=== PATIENT | male | born 1985 | race Hispanic/Latino ===

== ENCOUNTER 2019-06-17 09:29 | Emergency (ER) | payer BC ==
[2019-06-17] MEDS ORDERED: ALBUTEROL 2.5 MG/3 ML NEB SOL ONE (10:18)
[2019-06-17] MEDS ORDERED: IPRATROPIUM BROM 0.5MG/2.5ML ONE (10:18)
--- NOTE | 2019-06-17 11:48 | RAD REPORT ---
EXAM DESCRIPTION: RAD - Chest Pa And Lat (2 Views) - 06/17/2019 11:10 am CLINICAL HISTORY: Cough;Congestion, fever COMPARISON: None. TECHNIQUE: PA and lateral views of the chest were obtained. FINDINGS: The lungs are clear of focal infiltrate. Perihilar markings are not outside of range of no rmal. Heart size is normal and central vasculature is within normal limits. No pleural effusion or pneumothorax seen. No acute bony finding noted. No aortic abnormality. IMPRESSION: No acute cardiopulmonary process.
--- NOTE | 2019-06-17 11:56 | ER ---
Nurse's Notes [facility] Name: Arti Brunner Age: 34 yrs Sex: Male : 1985 Arrival Date: 06/17/2019 Time: 09:32 Bed 15 Private MD: Diagnosis: Bronchitis, not specified as acute or chronic Presentation: 06/17 09:46 Presenting complaint: Patient states: chest congestion and tightness X 2 days, fever at home on Jun 04, was seen at doctor and prescribed abx for bronchitis, f/u with doctor at clinic yesterday, doctor heard something on left side of chest was told he needed CXR, dry cough. Transition of care: patient was not received from another setting of care. Onset of symptoms was June 04, 2019. Risk Assessment: Do you want to hurt yourself or someone else? Patient reports no desire to harm self or others. Initial Sepsis Screen: Does the patient meet any 2 criteria? No. Patient's initial sepsis screen is negative. Does the patient have a suspected source of infection? No. Patient's initial sepsis screen is negative. Care prior to arrival: None. 09:46 Method Of Arrival: Ambulatory 09:46 Acuity: KARINE 3 iw Historical: - Allergies: 09:50 No Known Allergies; iw - Home Meds: 09:50 None [Active]; iw - PMHx: 09:50 None; iw - PSHx: 09:50 None; iw - Immunization history:: Adult Immunizations not up to date. - Social history:: Smoking status: Patient/guardian denies using tobacco. - Ebola Screening: : Patient negative for fever greater than or equal to 101.5 degrees Fahrenheit, and additional compatible Ebola Virus Disease symptoms Patient denies exposure to infectious person Patient denies travel to an Ebola-affected area in the 21 days before illness onset No symptoms or risks identified at this time. Screenin:00 Abuse screen: Denies threats or abuse. Denies injuries from another. Nutritional ph screening: No deficits noted. Tuberculosis screening: No symptoms or risk factors identified. Fall Risk None identified. Assessment: 10:00 General: Appears in no apparent distress. comfortable, well groomed, Behavior is calm, ph cooperative, appropriate for age, Denies fever. Pain: Denies pain. Neuro: Level of Consciousness is awake, alert, obeys commands, Oriented to person, place, time, situation. Cardiovascular: Capillary refill < 3 seconds in bilateral fingers Patient's skin is warm and dry. Rhythm is regular. Respiratory: Reports cough that is Airway is patent Respiratory effort is even, unlabored, Respiratory pattern is regular, symmetrical, Breath sounds are coarse in left posterior lower lobe. GI: No signs and/or symptoms were reported involving the gastrointestinal system. Derm: Skin is intact, is healthy with good turgor, Skin is pink, warm \T\ dry. Musculoskeletal: Circulation, motion, and sensation intact. Range of motion: intact in all extremities. 12:08 Reassessment: Patient appears in no apparent distress at this time. Patient and/or ph family updated on plan of care and expected duration. Pain level reassessed. Patient is alert, oriented x 3, equal unlabored respirations, skin warm/dry/pink. Pt d/c home. Vital Signs: 09:50 BP 143 / 102; Pulse 100; Resp 18; Temp 98.2(O); Pulse Ox 98% on R/A; Weight 72.57 kg; iw Height 5 ft. 7 in. (170.18 cm); 11:30 BP 137 / 89; Pulse 87; Resp 18; Temp 97.9; Pulse Ox 99% on R/A; ph 09:50 Body Mass Index 25.06 (72.57 kg, 170.18 cm) iw ED Course: 09:32 Patient arrived in ED. mr 09:41 Sabrina Luo, [facility]STINA is [facility]. kb 09:41 Dejuan Upton MD is Attending Physician. kb 09:50 Triage completed. iw 09:50 Arm band placed on. iw 09:55 Shasta Olvera, RN is Primary Nurse. ph 10:30 Patient has correct armband on for positive identification. Placed in gown. Bed in low ph position. Call light in reach. Side rails up X 1. Pulse ox on. NIBP on. Door closed. Noise minimized. Warm blanket given. 11:10 Chest Pa And Lat (2 Views) XRAY In Process Unspecified. EDMS 12:11 No provider procedures requiring assistance completed. Patient did not have IV access ph during this emergency room visit. Administered Medications: 10:23 Drug: DuoNeb (3:1) (2.5 mg - 0.5 mg) 3 ml Route: Nebulizer; ph 10:47 Follow up: Response: No adverse reaction ph Outcome: 11:54 Discharge ordered by . tramaine 12:11 Discharged to home ambulatory, with significant other. ph 12:11 Condition: good 12:11 Discharge instructions given to patient, Instructed on discharge instructions, follow up and referral plans. Demonstrated understanding of instructions, follow-up care. 12:12 Patient left the ED. ph Signatures: Dispatcher [employer] EDSabrina Perry, CHRISTINA ABAD-Elise Veras Irene, RN RN iw Shasta Olvera RN RN ph
--- NOTE | 2019-06-17 11:57 | EDPHYS ---
Physician Documentation [facility] Name: Arti Brunner Age: 34 yrs Sex: Male : 1985 Arrival Date: 06/17/2019 Time: 09:32 Bed 15 Private MD: ED Physician Dejuan Upton HPI: 06/17 11:33 This 34 yrs old Male presents to ER via Ambulatory with complaints of cough. kb 11:33 The patient or guardian reports cough, that is intermittent, described as mild, with no kb sputum, flu symptoms, low-grade fever, myalgias. Onset: The symptoms/episode began/occurred 2 week(s) ago. Severity of symptoms: At their worst the symptoms were moderate, in the emergency department the symptoms have improved, moderately. Modifying factors: The symptoms are alleviated by nothing, the symptoms are aggravated by nothing. Associated signs and symptoms: The patient has no apparent associated signs or symptoms. The patient has not experienced similar symptoms in the past. The patient has not recently seen a physician. Pt reports he started with cough, congestion and fever on 06/03/19. Went to the clinic on the third day of symptoms and was given 10 day course of augmentin. States he finished that yesterday and went back to the clinic for follow up. The dr that he saw yesterday told him he needed to come for a chest x-ray because she heard some bacteria in his left lung. Historical: - Allergies: 09:50 No Known Allergies; iw - Home Meds: 09:50 None [Active]; iw - PMHx: 09:50 None; iw - PSHx: 09:50 None; iw - Immunization history:: Adult Immunizations not up to date. - Social history:: Smoking status: Patient/guardian denies using tobacco. - Ebola Screening: : Patient negative for fever greater than or equal to 101.5 degrees Fahrenheit, and additional compatible Ebola Virus Disease symptoms Patient denies exposure to infectious person Patient denies travel to an Ebola-affected area in the 21 days before illness onset No symptoms or risks identified at this time. ROS: 11:32 Constitutional: Negative for fever, chills, and weight loss, ENT: Negative for injury, kb pain, and discharge, Neck: Negative for injury, pain, and swelling, Cardiovascular: Negative for chest pain, palpitations, and edema, Abdomen/GI: Negative for abdominal pain, nausea, vomiting, diarrhea, and constipation, Back: Negative for injury and pain, : Negative for injury, bleeding, discharge, and swelling, MS/Extremity: Negative for injury and deformity, Skin: Negative for injury, rash, and discoloration, Neuro: Negative for headache, weakness, numbness, tingling, and seizure. 11:32 Respiratory: Positive for cough, Negative for dyspnea on exertion, hemoptysis, orthopnea, pleurisy, shortness of breath, sputum production, wheezing. Exam: 11:32 Constitutional: This is a well developed, well nourished patient who is awake, alert, kb and in no acute distress. Head/Face: Normocephalic, atraumatic. ENT: Nares patent. No nasal discharge, no septal abnormalities noted. Tympanic membranes are normal and external auditory canals are clear. Oropharynx with no redness, swelling, or masses, exudates, or evidence of obstruction, uvula midline. Mucous membranes moist. Neck: Trachea midline, no thyromegaly or masses palpated, and no cervical lymphadenopathy. Supple, full range of motion without nuchal rigidity, or vertebral point tenderness. No Meningismus. Chest/axilla: Normal chest wall appearance and motion. Nontender with no deformity. No lesions are appreciated. Cardiovascular: Regular rate and rhythm with a normal S1 and S2. No gallops, murmurs, or rubs. Normal PMI, no JVD. No pulse deficits. Abdomen/GI: Soft, non-tender, with normal bowel sounds. No distension or tympany. No guarding or rebound. No evidence of tenderness throughout. Back: No spinal tenderness. No costovertebral tenderness. Full range of motion. Skin: Warm, dry with normal turgor. Normal color with no rashes, no lesions, and no evidence of cellulitis. MS/ Extremity: Pulses equal, no cyanosis. Neurovascular intact. Full, normal range of motion. Neuro: Awake and alert, GCS 15, oriented to person, place, time, and situation. Cranial nerves II-XII grossly intact. Motor strength 5/5 in all extremities. Sensory grossly intact. Cerebellar exam normal. Normal gait. 11:32 Respiratory: the patient does not display signs of respiratory distress, Respirations: normal, Breath sounds: rhonchi, that are mild, are heard in the left lower lobe and left posterior lower lobe. Vital Signs: 09:50 BP 143 / 102; Pulse 100; Resp 18; Temp 98.2(O); Pulse Ox 98% on R/A; Weight 72.57 kg; iw Height 5 ft. 7 in. (170.18 cm); 11:30 BP 137 / 89; Pulse 87; Resp 18; Temp 97.9; Pulse Ox 99% on R/A; ph 09:50 Body Mass Index 25.06 (72.57 kg, 170.18 cm) iw MDM: 09:50 Patient medically screened. kb 11:32 Data reviewed: vital signs, nurses notes. Data interpreted: Pulse oximetry: on room air kb is 98 %. Interpretation: normal. Test interpretation: by ED physician or midlevel provider: plain radiologic studies, neg . 11:54 Counseling: I had a detailed discussion with the patient and/or guardian regarding: the kb historical points, exam findings, and any diagnostic results supporting the discharge/admit diagnosis, radiology results, the need for outpatient follow up, a family practitioner, to return to the emergency department if symptoms worsen or persist or if there are any questions or concerns that arise at home. 06/17 10:09 Order name: Chest Pa And Lat (2 Views) XRAY; Complete Time: 11:55 kb Administered Medications: 10:23 Drug: DuoNeb (3:1) (2.5 mg - 0.5 mg) 3 ml Route: Nebulizer; ph 10:47 Follow up: Response: No adverse reaction ph Disposition: 06/17/19 11:54 Discharged to Home. Impression: Bronchitis, not specified as acute or chronic. - Condition is Stable. - Discharge Instructions: Acute Bronchitis, [id number], Viral Respiratory Infection, [id number]. - Prescriptions for Albuterol Sulfate 90 mcg/actuation - inhale 1-2 puff by INHALATION route every 4-6 hours; 1 Inhaler. - Medication Reconciliation Form, Thank You Letter, Antibiotic Education, Prescription Opioid Use, Work release form form. - Follow up: Private Physician; When: 2 - 3 days; Reason: Recheck today's complaints, Continuance of care, Re-evaluation by your physician. Follow up: Emergency Department; When: As needed. Addendum: 06/18/2019 15:28 Co-signature as Attending Physician, Dejuan Upton MD. g s Signatures: Dispatcher [employer] EDSabrina Perry, CLIENT RELATIONSHIP MANAGER-C CLIENT RELATIONSHIP MANAGER-Ckb Destinee Trejo, RN RN iw Shasta Olvera RN RN erik Upton, MD PAM Zaidi Corrections: (The following items were deleted from the chart) 06/17 12:12 11:54 06/17/2019 11:54 Discharged to Home. Impression: Bronchitis, not specified as ph acute or chronic. Condition is Stable. Forms are Medication Reconciliation Form, Thank You Letter, Antibiotic Education, Prescription Opioid Use. Follow up: Private Physician; When: 2 - 3 days; Reason: Recheck today's complaints, Continuance of care, Re-evaluation by your physician. Follow up: Emergency Department; When: As needed. kb
[2019-06-17 12:25] VITALS: BP 143/102; TEMP 98.2; O2SAT 98
== END 2019-06-17 12:12 | disposition home or self-care (01) ==
LOC: ER 09:29
DX: J40 Bronchitis, not specified as acute or chronic (principal)
CPT/HCPCS: 71046; 94640; 99284

== ENCOUNTER 2020-01-24 10:34 | Emergency (ER) | payer BC, SELFPAY ==
[2020-01-24 11:34] LABS: Absolute Lymphocytes (CBC) 1.9 K/uL (0.7-4.9); Basophils % 0.5 % (0-1.3); Hematocrit 51.4 % (39.6-49.0); Lymphocytes % 27.6 % (15.3-44.8); RBC Red Blood Cell Count 5.69 M/uL (4.33-5.43)
[2020-01-24 11:40] LABS: Protime INR 1.03
--- NOTE | 2020-01-24 11:43 | RAD REPORT ---
EXAM DESCRIPTION: Jsutus Single View01/24/2020 11:21 am CLINICAL HISTORY: Chest pain COMPARISON: 2018 FINDINGS: The lungs appear clear of acute infiltrate. The heart is normal size IMPRESSION: No acute abnormalities displayed
[2020-01-24 11:52] LABS: ALT/SGPT 44 U/L (12-78); AST/SGOT 18 U/L (15-37); Albumin 3.9 g/dL (3.4-5.0); Alkaline Phosphatase 77 U/L (45-117); BUN Blood Urea Nitrogen 12 mg/dL (7-18); Bicarbonate 31 mmol/L (21-32); Bilirubin Direct 0.2 mg/dL (0-0.2); Bilirubin Total 0.6 mg/dL (0.2-1.0); Glucose Level 108 mg/dL (74-106); Magnesium 2.2 mg/dL (1.8-2.4); NT PRO-BNP 5 pg/mL (<125); Protein, Total 7.4 g/dL (6.4-8.2); Sodium Level 140 mmol/L (136-145); Troponin (Emerg Dept Use Only) < 0.02 ng/mL (0.0-0.045)
[2020-01-24 13:43] VITALS: TEMP 99.1
[2020-01-24 13:45] VITALS: BP 131/88; O2SAT 98
--- NOTE | 2020-01-25 07:09 | EKG ---
Test Date: 2020-01-24 Test Time: 11:08:01 Retail Wireless Sales Representative: DAVION MEASUREMENT RESULTS: Intervals: Rate: 69 MD: 138 QRSD: 86 QT: 362 QTc: 387 Alva: P: 51 MD: 138 QRS: 50 T: 23 INTERPRETIVE STATEMENTS: Normal sinus rhythm with sinus arrhythmia Nonspecific T wave abnormality Abnormal ECG No previous ECG available for comparison Electronically Signed On 01-25-20 07:08:07 CDT by Nicolas Palacios
--- NOTE | 2020-01-31 12:10 | ER ---
Nurse's Notes [facility] Name: Arti Brunner Age: 34 yrs Sex: Male : 1985 Arrival Date: 01/24/2020 Time: 10:36 Bed 16 Private MD: Diagnosis: Chest pain, unspecified Presentation: 01/23 10:50 Chief complaint: Patient states: left-sided chest pain, left arm tingling and pain aa5 radiating to upper back. Pt reports mild SOB. Denies cough, denies fever. Pt reports symptoms began 3-4 days ago. 10:50 Coronavirus screen: Patient denies a cough. Patient reports shortness of breath or aa5 difficulty breathing. Patient denies measured and/or subjective temperature greater than 100.4F prior to today's visit. Patient denies travel on a cruise ship or to a country the [facility] currently lists as an affected area. Patient denies contact with known and/or suspected case of COVID-19. Ebola Screen: Patient negative for fever greater than or equal to 101.5 degrees Fahrenheit, and additional compatible Ebola Virus Disease symptoms. Initial Sepsis Screen: Does the patient meet any 2 criteria? No. Patient's initial sepsis screen is negative. Does the patient have a suspected source of infection? No. Patient's initial sepsis screen is negative. Risk Assessment: Do you want to hurt yourself or someone else? Patient reports no desire to harm self or others. Onset of symptoms was December 2019. 10:50 Acuity: KARINE 3 aa5 10:50 Method Of Arrival: Ambulatory aa5 Triage Assessment: 10:50 General: Appears in no apparent distress. comfortable, Behavior is cooperative, bp appropriate for age, anxious. Pain: Complains of pain in chest. EENT: No deficits noted. Neuro: No deficits noted. Cardiovascular: No deficits noted. Respiratory: No deficits noted. GI: No signs and/or symptoms were reported involving the gastrointestinal system. : No signs and/or symptoms were reported regarding the genitourinary system. Derm: No deficits noted. Musculoskeletal: No deficits noted. Historical: - Allergies: 10:50 No Known Allergies; aa5 - PMHx: 10:50 None; aa5 - PSHx: 10:50 lasik eye sx; aa5 - Immunization history:: Adult Immunizations unknown. - Social history:: Smoking status: unknown. Screenin:54 Abuse screen: Denies threats or abuse. Denies injuries from another. Nutritional bp screening: No deficits noted. Tuberculosis screening: No symptoms or risk factors identified. Fall Risk None identified. Assessment: 10:50 General: SEE TRIAGE NOTE. bp 11:50 Reassessment: ALL CURRENT ORDERS COMPLETED, EKG UNREMARKABLE. bp 13:08 Reassessment: PT D/C HOME AMBULATORY, DX WITH NONSPECIFIC CHEST PAIN. bp Vital Signs: 10:50 BP 137 / 87; Pulse 73; Resp 16 S; Temp 99.1(O); Pulse Ox 100% on R/A; Pain 0/10; aa5 12:06 BP 125 / 85; Pulse 75; Resp 18; Pulse Ox 99% ; bp 13:07 BP 131 / 88; Pulse 72; Resp 15; Pulse Ox 98% ; bp ED Course: 10:36 Patient arrived in ED. ag5 10:50 Crow Campbell NP is PHCP. pm1 10:50 Kye Elliott MD is Attending Physician. pm1 10:50 Arm band placed on Patient placed in an exam room, on a stretcher. aa5 10:59 Triage completed. aa5 11:00 cardiac monitor technician on. Pulse ox on. NIBP on. bp 11:00 Patient maintains SpO2 saturation greater than 95% on room air. bp 11:03 Car Monet, MIHAELA is Primary Nurse. bp 11:20 Inserted saline lock: 20 gauge in left forearm, using aseptic technique. Blood bp collected. 11:24 XRAY Chest (1 view) In Process Unspecified. EDMS 11:54 Patient has correct armband on for positive identification. Bed in low position. Call bp light in reach. Side rails up X2. 13:09 No provider procedures requiring assistance completed. IV discontinued, intact, bp bleeding controlled, No redness/swelling at site. Pressure dressing applied. Administered Medications: No medications were administered Outcome: 12:32 Discharge ordered by . pm1 13:09 Discharged to home bp 13:09 Condition: stable 13:09 Discharge instructions given to patient, Instructed on discharge instructions, follow up and referral plans. Demonstrated understanding of instructions, follow-up care. 13:11 Patient left the ED. bp Signatures: Dispatcher [employer] EDJayde Teresa RN RN aa5 Crow Campbell NP BIOLOGICAL TECHNICAL OFFICER pm1 Car Monet, MIHAELA RN bp Nancy, Ericka ag5
--- NOTE | 2020-01-31 12:10 | EDPHYS ---
Physician Documentation [facility] Name: Arti Brunner Age: 34 yrs Sex: Male : 1985 Arrival Date: 01/24/2020 Time: 10:36 Bed 16 Private MD: ED Physician Kye Elliott HPI: 01/23 11:03 This 34 yrs old Male presents to ER via Ambulatory with complaints of Chest pm1 Pain, Back Pain, Numbness Of Arm. 11:03 The patient or guardian reports chest pain that is located primarily in the left pm1 clavicle and anterior aspect of left upper chest. The pain radiates to the left arm, left back. Associated signs and symptoms: Pertinent positives: shortness of breath, Pertinent negatives: abdominal pain, cough, nausea, vomiting. The chest pain is described as sharp. Duration: The patient or guardian reports a single episode, that is now resolved. Severity of pain: in the emergency department the pain has resolved. The patient has not experienced similar symptoms in the past. onset 3-4 days ago. Historical: - Allergies: 10:50 No Known Allergies; aa5 - PMHx: 10:50 None; aa5 - PSHx: 10:50 lasik eye sx; aa5 - Immunization history:: Adult Immunizations unknown. - Social history:: Smoking status: unknown. ROS: 11:03 Constitutional: Negative for fever, chills, and weight loss. pm1 11:03 Abdomen/GI: Negative for abdominal pain, nausea, vomiting, diarrhea, and constipation, MS/Extremity: Negative for injury and deformity, Skin: Negative for injury, rash, and discoloration. 11:03 Neuro: Negative for headache, weakness, numbness, tingling, and seizure. 11:03 Cardiovascular: Positive for chest pain, Negative for edema, palpitations. 11:03 Respiratory: Positive for shortness of breath, Negative for cough, wheezing. 11:03 Back: Positive for pain left trapezius. Exam: 11:03 Constitutional: This is a well developed, well nourished patient who is awake, alert, pm1 and in no acute distress. Head/Face: Normocephalic, atraumatic. Neck: Trachea midline, no thyromegaly or masses palpated, and no cervical lymphadenopathy. Supple, full range of motion without nuchal rigidity, or vertebral point tenderness. No Meningismus. Chest/axilla: Normal chest wall appearance and motion. Nontender with no deformity. No lesions are appreciated. Cardiovascular: Regular rate and rhythm with a normal S1 and S2. No gallops, murmurs, or rubs. Normal PMI, no JVD. No pulse deficits. Respiratory: Lungs have equal breath sounds bilaterally, clear to auscultation and percussion. No rales, rhonchi or wheezes noted. No increased work of breathing, no retractions or nasal flaring. Abdomen/GI: Soft, non-tender, with normal bowel sounds. No distension or tympany. No guarding or rebound. No evidence of tenderness throughout. Back: No spinal tenderness. No costovertebral tenderness. Full range of motion. Skin: Warm, dry with normal turgor. Normal color with no rashes, no lesions, and no evidence of cellulitis. MS/ Extremity: Pulses equal, no cyanosis. Neurovascular intact. Full, normal range of motion. 11:03 Neuro: Exam negative for acute changes, Orientation: is normal, Mentation: is normal, Motor: is normal, moves all fours. Vital Signs: 10:50 BP 137 / 87; Pulse 73; Resp 16 S; Temp 99.1(O); Pulse Ox 100% on R/A; Pain 0/10; aa5 12:06 BP 125 / 85; Pulse 75; Resp 18; Pulse Ox 99% ; bp 13:07 BP 131 / 88; Pulse 72; Resp 15; Pulse Ox 98% ; bp MDM: 10:50 Patient medically screened. pm1 12:30 Data reviewed: vital signs. Data interpreted: Pulse oximetry: on room air is 99 %. pm1 Interpretation: normal. Counseling: I had a detailed discussion with the patient and/or guardian regarding: the historical points, exam findings, and any diagnostic results supporting the discharge/admit diagnosis, lab results, radiology results, the need for outpatient follow up, to return to the emergency department if symptoms worsen or persist or if there are any questions or concerns that arise at home. 01/23 10:58 Order name: Basic Metabolic Panel; Complete Time: 11:53 pm1 01/23 10:58 Order name: CBC with Diff; Complete Time: 11:38 pm1 01/23 10:58 Order name: LFT's; Complete Time: 11:53 pm01/23 10:58 Order name: Magnesium; Complete Time: 11:53 pm01/23 10:58 Order name: NT PRO-BNP; Complete Time: 11:53 pm01/23 10:58 Order name: PT-INR; Complete Time: 11:52 pm01/23 10:58 Order name: Troponin (emerg Dept Use Only); Complete Time: 11:53 pm01/23 10:58 Order name: XRAY Chest (1 view); Complete Time: 11:52 pm01/23 10:58 Order name: EKG; Complete Time: 11:01 pm01/23 10:58 Order name: Cardiac monitoring; Complete Time: 11:04 pm01/23 10:58 Order name: EKG - Nurse/Tech; Complete Time: 11: pm01/23 10:58 Order name: IV Saline Lock; Complete Time: 11:25 pm01/23 10:58 Order name: Labs collected and sent; Complete Time: 11: pm01/23 10:58 Order name: O2 Per Protocol; Complete Time: 11: pm01/23 10:58 Order name: O2 Sat Monitoring; Complete Time: 11: pm Administered Medications: No medications were administered Disposition: 18:09 Co-signature as Attending Physician, Kye Elliott MD. rn Disposition: 01/24/20 12:32 Discharged to Home. Impression: Chest pain, unspecified. - Condition is Stable. - Discharge Instructions: Nonspecific Chest Pain. - Medication Reconciliation Form, Thank You Letter, Antibiotic Education, Prescription Opioid Use form. - Follow up: Emergency Department; When: As needed; Reason: Worsening of condition. Follow up: Private Physician; When: 2 - 3 days; Reason: Recheck today's complaints, Continuance of care, Re-evaluation by your physician. - Problem is new. - Symptoms have improved. Signatures: Dispatcher [employer] EDMS Kye Elliott MD MD rn Calderon, Audri RN RN aa5 Crow Campbell, BERNADETTE HOT STONE SETTER pm1 Car Monet RN RN bp Corrections: (The following items were deleted from the chart) 13:11 12:32 01/24/2020 12:32 Discharged to Home. Impression: Chest pain, unspecified. bp Condition is Stable. Forms are Medication Reconciliation Form, Thank You Letter, Antibiotic Education, Prescription Opioid Use. Follow up: Emergency Department; When: As needed; Reason: Worsening of condition. Follow up: Private Physician; When: 2 - 3 days; Reason: Recheck today's complaints, Continuance of care, Re-evaluation by your physician. Problem is new. Symptoms have improved. pm1
== END 2020-01-24 13:11 | disposition home or self-care (01) ==
LOC: ER 10:34
DX: R07.9 Chest pain, unspecified (principal)
CPT/HCPCS: 36415; 71045; 80048; 80076; 83735; 83880; 84484; 85025; 85610; 93005; 99285